=== PATIENT | male | born 1985 | race Caucasian/White ===

== ENCOUNTER 2018-06-27 12:55 | Outpatient (CLI) | payer OTHER | END 2018-06-27 13:09 | disposition home or self-care (01) | LOC: EDBD 12:55 → EDSEX 12:55 → SONOGRAMA 12:55 | DX: D21.4 Benign neoplasm of connective and other soft tissue of abdomen (principal) ==

== ENCOUNTER 2018-07-19 06:39 | Day surgery (SDC) | payer OTHER | END 2018-07-19 15:45 | disposition home or self-care (01) | LOC: CIR.AMB 06:39 | DX: D17.1 Benign lipomatous neoplasm of skin and subcutaneous tissue of trunk (principal) ==